=== PATIENT | female | born 1980 | race Native Hawaiian/Other Pacific Islander ===

== ENCOUNTER 2016-07-27 18:36 | Emergency (ER) | payer OTHER ==
[~2016-07-27] VITALS: Ht 152.4 cm; Wt 63.5 kg
[~2016-07-27 18:36] MED LIST: ACET-689 PO; ACID CONTROL MA20 MG OR; ANTI-DIARRHE2 MG OR; ASA LO-DOSE81 MG OR; DICY20TA34 PO; FLUOXETINE40 MG PO; FURO20TA67 PO; GABA300C2 PO; GRIFULVIN V500 MG OR; LAMISIL250 MG OR; LORAZEPAM1 MG OR; OMEPRAZOLE20 M1 OR; OXYB5TAB56 PO; PHENTERMINE37.5 M1 OR; PHENTERMINE37.5 MG OR; PREDNISONE10 M1 OR; PROAIR HFA IN; PROPRANOLOL40 MG OR; TRAZ100T OR; TYLENOL325 MG OR
[2016-07-27 20:55] VITALS: BP 114/98; TEMP 98.2
== END 2016-07-27 20:56 | disposition home or self-care (01) ==
LOC: ED 18:36
DX: M54.9 Dorsalgia, unspecified (principal); S90.31XA Contusion of right foot, initial encounter; V43.62XA Car passenger injured in collision with other type car in traffic accident, initial encounter
CPT/HCPCS: 81002; 99283

== ENCOUNTER 2016-11-05 16:01 | Emergency (ER) | payer OTHER ==
[~2016-11-05] VITALS: Ht 152.4 cm; Wt 65.3 kg
[2016-11-05 16:30] VITALS: TEMP 98.3
[2016-11-05 17:48] LABS: PLATELET COUNT 282 K/uL (152-353)
[2016-11-05 18:23] VITALS: BP 105/78
== END 2016-11-05 18:27 | disposition home or self-care (01) ==
LOC: ED 16:01
DX: N39.0 Urinary tract infection, site not specified (principal); R10.9 Unspecified abdominal pain
CPT/HCPCS: 36415; 81000; 85027; 87086; 87088; 96372; 99283; J0696

== ENCOUNTER 2017-03-15 12:20 | Emergency (ER) | payer OTHER ==
[~2017-03-15] VITALS: Ht 152.4 cm; Wt 67.1 kg
[2017-03-15 12:20] VITALS: TEMP 98.3
[2017-03-15 14:25] VITALS: BP 114/69
== END 2017-03-15 14:25 | disposition home or self-care (01) ==
LOC: ED 12:20
DX: N39.0 Urinary tract infection, site not specified (principal); R30.9 Painful micturition, unspecified
CPT/HCPCS: 81000; 96372; 99283; J1885

== ENCOUNTER 2017-06-05 19:15 | Observation (INO) | payer OTHER ==
[~2017-06-05] VITALS: Ht 149.9 cm; Wt 71.8 kg
[2017-06-05 19:25] VITALS: BP 108/75; TEMP 98
[2017-06-05] MEDS ORDERED: ZANTAC300 MG PO (19:45)
[2017-06-05] MEDS ORDERED: OMEP40CA PO (19:46)
[2017-06-05] MEDS ORDERED: CLON1TAB18 PO (19:46)
[2017-06-05] MEDS ORDERED: CARAFATE1 GM PO (19:46)
[2017-06-05] MEDS ORDERED: PANTOPRAZOLE 40MG TA PO (19:48)
[2017-06-05] MEDS ORDERED: ACET-689 PO (19:49)
[2017-06-05] MEDS ORDERED: FURO40TA93 PO (19:49)
[2017-06-05 20:45] LABS: PLATELET COUNT 199 K/uL (152-353)
[2017-06-05 21:07] LABS: SODIUM 135 mmol/L (136-145)
[2017-06-05 21:09] LABS: POTASSIUM 2.4 mmol/L (3.6-5.2)
[2017-06-05 21:10] LABS: PARTIAL THROMBOPLASTIN TIME 26.3 SECONDS (24.5-33.6)
[2017-06-06 01:30] VITALS: BP 113/78; TEMP 97.4; Ht 149.9 cm; Wt 71.8 kg
[2017-06-06 04:00] VITALS: BP 86/48; TEMP 98
[2017-06-06 08:00] VITALS: BP 101/62; TEMP 98
[2017-06-06 12:00] VITALS: BP 96/44; TEMP 98
[2017-06-06 16:00] VITALS: BP 126/72
[2017-06-06 20:00] VITALS: BP 95/54; TEMP 98
[2017-06-07] VITALS: BP 113/69; TEMP 98.2
[2017-06-07 04:00] VITALS: BP 98/42; TEMP 97.7
[2017-06-07 06:51] LABS: PLATELET COUNT 180 K/uL (152-353)
[2017-06-07 07:06] LABS: POTASSIUM 3.7 mmol/L (3.6-5.2)
[2017-06-07 08:00] VITALS: BP 112/66; TEMP 97.8
[2017-06-07] MEDS ORDERED: CIPR500T PO (09:53)
--- NOTE | 2017-06-07 10:23 | NUR ---
1020 PT LEFT WITH FAMILY NO ACUTE DISTRESS NOTED. PT VERBALIZED UNDERSTANDING
== END 2017-06-07 11:00 | disposition home or self-care (01) ==
LOC: ED 19:15 → MED/SURG 21:30
PROVIDERS: Family Medicine
DX: R07.89 Other chest pain (principal); I10 Essential (primary) hypertension; F31.89 Other bipolar disorder; F32.89 Other specified depressive episodes; M79.1 Myalgia; E87.1 Hypo-osmolality and hyponatremia; G89.4 Chronic pain syndrome; R82.99 Other abnormal findings in urine
CPT/HCPCS: 36415; 80053; 80307; 81000; 82550; 83735; 84484; 85027; 85610; 85730; 87081; 87086; 87088; 87804; 87880; 93005; 96367; 96372; 96375; 99220; 99284; G0378; J1650; J2270; J2405; J3480

== ENCOUNTER 2017-09-27 18:07 | Emergency (ER) | payer OTHER ==
[~2017-09-27] VITALS: Ht 154.9 cm; Wt 72.1 kg
[~2017-09-27 18:07] MED LIST changes: +CARAFATE1 GM PO; +CIPR500T PO; +CLON1TAB18 PO; +FURO40TA93 PO; +OMEP40CA PO; +PANTOPRAZOLE 40MG TA PO; +ZANTAC300 MG PO
[2017-09-27 18:17] VITALS: TEMP 97.7
[2017-09-27 21:46] LABS: PLATELET COUNT 214 K/uL (152-353)
[2017-09-27 22:54] VITALS: BP 122/71
== END 2017-09-27 22:54 | disposition home or self-care (01) ==
LOC: ED 18:07
PROVIDERS: Family Medicine
DX: E87.6 Hypokalemia (principal); S49.91XA Unspecified injury of right shoulder and upper arm, initial encounter; W01.0XXA Fall on same level from slipping, tripping and stumbling without subsequent striking against object, initial encounter
CPT/HCPCS: 80048; 85027; 96374; 99283; J1885